=== PATIENT | male | born 1965 | race Caucasian/White ===

== ENCOUNTER → 2021-08-25 | Outpatient (REF) | payer OTHER ==
[2021-08-25 12:06] LABS: HEMATOCRIT 48.9 % (42.0-52.0); HEMOGLOBIN 16.5 g/dl (13.5-17.5); MEAN CORPUSCULAR HEMOGLOBIN 30.4 pg (27.0-33.0); MEAN CORPUSCULAR HGB CONC 33.7 g/dl (32.0-36.5); MEAN CORPUSCULAR VOLUME 90.1 fl (80.0-96.0); PLATELET COUNT, AUTOMATED 314 10^3/uL (150-450); RED BLOOD COUNT 5.43 10^6/uL (4.30-6.10); WHITE BLOOD COUNT 8.2 10^3/uL (4.0-10.0)
[2021-08-25 12:15] LABS: ALT/SGPT 26 U/L (12-78); BILIRUBIN,TOTAL 0.4 MG/DL (0.2-1.0); BLOOD UREA NITROGEN 13 MG/DL (7-18); CALCIUM LEVEL 9.3 MG/DL (8.5-10.1); CARBON DIOXIDE LEVEL 33 MEQ/L (21-32); CHLORIDE LEVEL 104 MEQ/L (98-107); CHOLESTEROL LEVEL 199 MG/DL (<200); CREATININE FOR GFR 1.05 MG/DL (0.70-1.30); GLOMERULAR FILTRATION RATE > 60.0 (>56); GLUCOSE, FASTING 105 MG/DL (70-100); HDL CHOLESTEROL 50 MG/DL (>40); LDL CHOLESTEROL 120 MG/DL (<100); NON-HDL-C 149 MG/DL; POTASSIUM SERUM 3.7 MEQ/L (3.5-5.1); SODIUM LEVEL 140 MEQ/L (136-145); TOTAL PROTEIN 7.3 GM/DL (6.4-8.2); TRIGLYCERIDES LEVEL 143 MG/DL (<150)
[2021-08-25 12:51] LABS: HEMOGLOBIN A1c 5.3 %
== END ==
LOC: M SFHCCLAY 07:53
PROVIDERS: ATTEND Nurse Practitioner Family
DX: I50.9 Heart failure, unspecified (principal); I11.0 Hypertensive heart disease with heart failure; Z13.1 Encounter for screening for diabetes mellitus

== ENCOUNTER → 2021-10-14 | Outpatient (CLI) | payer OTHER | LOC: M PAIN 13:00 | PROVIDERS: ATTEND Nurse Practitioner Family | DX: M54.50 Low back pain, unspecified (principal); G89.29 Other chronic pain; F17.290 Nicotine dependence, other tobacco product, uncomplicated; Z86.59 Personal history of other mental and behavioral disorders; Z88.0 Allergy status to penicillin; Z79.899 Other long term (current) drug therapy ==

== ENCOUNTER → 2022-02-23 | Outpatient (REF) | payer OTHER ==
[2022-02-23 17:54] LABS: MEAN CORPUSCULAR HEMOGLOBIN 29.9 pg (27.0-33.0); MEAN CORPUSCULAR HGB CONC 33.3 g/dl (32.0-36.5); MEAN CORPUSCULAR VOLUME 89.6 fl (80.0-96.0); PLATELET COUNT, AUTOMATED 293 10^3/uL (150-450); RED BLOOD COUNT 5.36 10^6/uL (4.30-6.10); WHITE BLOOD COUNT 9.5 10^3/uL (4.0-10.0)
[2022-02-23 18:59] LABS: ALBUMIN 3.8 GM/DL (3.2-5.2); ALT/SGPT 26 U/L (12-78); BILIRUBIN,TOTAL 0.5 MG/DL (0.2-1.0); BLOOD UREA NITROGEN 10 MG/DL (7-18); CALCIUM LEVEL 8.9 MG/DL (8.5-10.1); CARBON DIOXIDE LEVEL 26 MEQ/L (21-32); CHLORIDE LEVEL 106 MEQ/L (98-107); CHOLESTEROL LEVEL 189 MG/DL (<200); CHOLESTEROL RISK RATIO 3.705 (<5); CREATININE FOR GFR 0.92 MG/DL (0.70-1.30); GLOMERULAR FILTRATION RATE > 60.0 (>56); GLUCOSE, FASTING 83 MG/DL (70-100); HDL CHOLESTEROL 51 MG/DL (>40); LDL CHOLESTEROL 103 MG/DL (<100); NON-HDL-C 138 MG/DL; POTASSIUM SERUM 4.1 MEQ/L (3.5-5.1); SODIUM LEVEL 138 MEQ/L (136-145); TOTAL PROTEIN 7.3 GM/DL (6.4-8.2); TRIGLYCERIDES LEVEL 176 MG/DL (<150)
== END ==
LOC: M SFHCCLAY 11:33
PROVIDERS: ATTEND Nurse Practitioner Family
DX: I10 Essential (primary) hypertension (principal); E78.5 Hyperlipidemia, unspecified; Z12.5 Encounter for screening for malignant neoplasm of prostate

== ENCOUNTER → 2022-03-31 | Outpatient (REF) | payer OTHER | LOC: M SFHCCLAY 03-30 07:11 | PROVIDERS: ATTEND Physician Assistant | DX: R36.1 Hematospermia (principal) ==

== ENCOUNTER → 2022-04-29 | Outpatient (REF) | payer OTHER | LOC: M SMT 13:14 | PROVIDERS: ATTEND Urology | DX: R97.20 Elevated prostate specific antigen [PSA] (principal) ==

== ENCOUNTER 2022-06-08 13:00 | Inpatient (IN) | payer OTHER ==
[~2022-06-08] VITALS: Ht 185.4 cm; Wt 122.9 kg
[2022-06-22] MEDS ORDERED: GABA-282 PO (13:49)
[2022-06-22] MEDS ORDERED: PROA1AER2 INH (13:49)
[2022-06-22] MEDS ORDERED: ALLO100T PO (13:49)
[2022-06-22] MEDS ORDERED: EZET10TA21 PO (13:49)
[2022-06-22] MEDS ORDERED: FURO20TA2 PO (13:49)
[2022-06-22] MEDS ORDERED: AMLO10TA PO (13:49)
[2022-06-22] MEDS ORDERED: VENL75CA47 PO (13:49)
[2022-06-22] MEDS ORDERED: TAMS1CAP17 PO (13:49)
[2022-06-22] MEDS ORDERED: SIMV10TA21 PO (13:49)
[2022-06-22] MEDS ORDERED: META1TAB22 PO (13:49)
[2022-06-22] MEDS ORDERED: DIAZ10TA2 PO (13:49)
[2022-06-30] MEDS ORDERED: LIDOCAINE 2% 100MG/5ML SDV (FOR ANES.) As Ordered ONE (09:26)
[2022-06-30] MEDS ORDERED: propofoL 200 MG/20 ML VIAL As Ordered ONE (09:26)
[2022-06-30] MEDS ORDERED: ONDANSETRON 4MG 2ML VIAL As Ordered ONE (09:26)
[2022-06-30] MEDS ORDERED: SUGAMMADEX SODIUM 500 MG/5 ML VIAL (BRIDION) As Ordered ONE (09:26)
[2022-06-30] MEDS ORDERED: ROCURONIUM BROMIDE 50MG/5ML VIAL As Ordered ONE ×3 (09:26→16:00)
[2022-06-30] MEDS ORDERED: LR 1,000 ML IV SCH ×2 (10:05→18:30)
[2022-06-30] MEDS ORDERED: ceFAZolin SOD 2 GM in IV 1 EA IV ONE (10:45)
[2022-06-30] MEDS ORDERED: ceFAZolin SOD 1 GM in D5W MINI-BAG PLUS 50 ML IV ONE (10:45)
[2022-06-30] MEDS ORDERED: FUROSEMIDE 100MG/10ML VIAL As Ordered ONE (11:02)
[2022-06-30] MEDS ORDERED: MIDAZOLAM INJ 2MG/2ML VIAL As Ordered ONE (12:18)
[2022-06-30] MEDS ORDERED: fentaNYL 250 MCG/5 ML INJECTION As Ordered ONE (12:18)
[2022-06-30] MEDS ORDERED: LIDOCAINE 1% SDV 30ML VIAL As Ordered ONE (13:16)
[2022-06-30] MEDS ORDERED: BUPIVACAINE HCL 0.25% 30ML VIAL As Ordered ONE (13:16)
[2022-06-30] MEDS ORDERED: ONDANSETRON 4MG 2ML VIAL IV PRN ×2 (13:40→18:30)
[2022-06-30] MEDS ORDERED: ACETAMINOPHEN TAB 650MG DOSE (2X325MG) PO PRN (13:40)
[2022-06-30] MEDS ORDERED: NS 1,000 ML IV SCH (13:40)
[2022-06-30] MEDS ORDERED: ALBUTEROL 90 MCG/ACT 8GM HFA INHALER INH PRN (13:40)
[2022-06-30] MEDS ORDERED: HEPARIN SOD (PORCINE) 5000UNITS/ML 1ML VIAL/SYRINGE As Ordered ONE (13:53)
[2022-06-30] MEDS ORDERED: ePHEDrine SULFATE 25 MG/5 ML(5MG/ML) SYRINGE As Ordered ONE (13:56)
[2022-06-30] MEDS ORDERED: ceFAZolin 1GM VIAL As Ordered ONE ×2 (14:08→18:10)
[2022-06-30] MEDS ORDERED: ceFAZolin 2 GM/D5W 50 ML IV BAG As Ordered ONE ×2 (14:08→18:10)
[2022-06-30] MEDS ORDERED: GLYCOPYRROLATE INJ 0.2 MG/ML 2 ML VIAL As Ordered ONE (14:32)
[2022-06-30] MEDS ORDERED: ACETAMINOPHEN 1000MG 100ML IV BAG As Ordered ONE (15:43)
[2022-06-30] MEDS ORDERED: HYDROmorphone HCL 2MG/ML 1ML VIAL As Ordered ONE (15:57)
[2022-06-30] MEDS ORDERED: CALCIUM CHLORIDE 10% 1 GM/10 ML SYR As Ordered ONE (17:39)
[2022-06-30] MEDS ORDERED: LIDOCAINE 2% INJ 100 MG/5 ML SYRINGE As Ordered ONE (17:45)
[2022-06-30] MEDS ORDERED: fentaNYL 100 MCG/2 ML INJECTION As Ordered ONE (18:16)
[2022-06-30] MEDS ORDERED: oxyCODONE 5MG TAB PO PRN (18:30)
[2022-06-30] MEDS ORDERED: fentaNYL 100 MCG/2 ML INJECTION IV PRN (18:30)
[2022-06-30] MEDS ORDERED: HYDROMORPHONE HCL 0.5 MG/ 0.5 ML SYRINGE IV PRN (18:30)
[2022-06-30 19:31] LABS: HEMATOCRIT 44.7 % (42.0-52.0); HEMOGLOBIN 14.9 g/dl (13.5-17.5); MEAN CORPUSCULAR HEMOGLOBIN 30.3 pg (27.0-33.0); MEAN CORPUSCULAR HGB CONC 33.3 g/dl (32.0-36.5); PLATELET COUNT, AUTOMATED 278 10^3/uL (150-450); RED BLOOD COUNT 4.91 10^6/uL (4.30-6.10); WHITE BLOOD COUNT 16.4 10^3/uL (4.0-10.0)
[2022-06-30 19:54] LABS: BLOOD UREA NITROGEN 13 MG/DL (9-23); CALCIUM LEVEL 8.9 MG/DL (8.5-10.1); CARBON DIOXIDE LEVEL 27 MMOL/L (20-31); CHLORIDE LEVEL 105 MMOL/L (98-107); CREATININE FOR GFR 1.08 MG/DL (0.70-1.30); GLOMERULAR FILTRATION RATE > 60.0 (>56); GLUCOSE, FASTING 118 MG/DL (60-100); POTASSIUM SERUM 3.9 MMOL/L (3.5-5.1); SODIUM LEVEL 139 MMOL/L (136-145)
[2022-06-30 20:20] VITALS: BP 129/90
[2022-06-30] MEDS ORDERED: DIAZ5TAB PO (20:57)
[2022-06-30 21:00] VITALS: BP 133/76
[2022-06-30] MEDS ORDERED: HOME MED LIST COMPLETE! XX SCH (21:00)
[2022-06-30] MEDS ORDERED: MULTIVITAMIN -ADULT INJECTION 10 ML, THIAMINE INJection 100 MG, FOLIC ACID 1 MG in NS 1... IV ONE (21:00)
[2022-06-30 21:30] VITALS: BP 140/80
[2022-06-30] MEDS: DOCUSATE SODIUM 100MG CAPSULE PO SCH (21:55)
[2022-06-30] MEDS: GABAPENTIN 300 MG CAP PO SCH (21:55)
[2022-06-30] MEDS: HEPARIN SOD (PORCINE) 5000UNITS/ML 1ML VIAL/SYRINGE SC SCH (21:57)
[2022-06-30] MEDS: ceFAZolin SOD 1 GM in D5W MINI-BAG PLUS 50 ML IV SCH (22:02)
[2022-06-30] MEDS: PERCOCET 5MG/325MG TAB PO PRN (22:03)
[2022-06-30 22:30] VITALS: BP 149/91
[2022-06-30 23:30] VITALS: BP 143/89
[2022-07-01 00:30] VITALS: BP 139/77
[2022-07-01] MEDS: PERCOCET 5MG/325MG TAB PO PRN ×3 (04:34→14:00)
[2022-07-01] MEDS: ceFAZolin SOD 1 GM in D5W MINI-BAG PLUS 50 ML IV SCH (05:26)
[2022-07-01] MEDS: HEPARIN SOD (PORCINE) 5000UNITS/ML 1ML VIAL/SYRINGE SC SCH ×2 (05:26→14:00)
[2022-07-01 05:38] LABS: HEMATOCRIT 42.1 % (42.0-52.0); HEMOGLOBIN 14.1 g/dl (13.5-17.5); MEAN CORPUSCULAR HEMOGLOBIN 30.4 pg (27.0-33.0); MEAN CORPUSCULAR HGB CONC 33.5 g/dl (32.0-36.5); MEAN CORPUSCULAR VOLUME 90.7 fl (80.0-96.0); PLATELET COUNT, AUTOMATED 272 10^3/uL (150-450); RED BLOOD COUNT 4.64 10^6/uL (4.30-6.10); WHITE BLOOD COUNT 10.8 10^3/uL (4.0-10.0)
[2022-07-01 06:00] VITALS: BP 145/88
[2022-07-01 06:00] LABS: BLOOD UREA NITROGEN 12 MG/DL (9-23); CALCIUM LEVEL 8.4 MG/DL (8.5-10.1); CARBON DIOXIDE LEVEL 27 MMOL/L (20-31); CHLORIDE LEVEL 102 MMOL/L (98-107); CREATININE FOR GFR 1.01 MG/DL (0.70-1.30); GLOMERULAR FILTRATION RATE > 60.0 (>56); GLUCOSE, FASTING 94 MG/DL (60-100); POTASSIUM SERUM 4.3 MMOL/L (3.5-5.1); SODIUM LEVEL 137 MMOL/L (136-145)
[2022-07-01] MEDS ORDERED: SIMVASTATIN 10 MG TAB PO SCH (09:00)
[2022-07-01] MEDS ORDERED: FUROSEMIDE 20 MG TAB PO SCH (09:00)
[2022-07-01] MEDS ORDERED: allopurinoL 100 MG TAB PO SCH (09:00)
[2022-07-01] MEDS: GABAPENTIN 300 MG CAP PO SCH (09:20)
[2022-07-01] MEDS: DOCUSATE SODIUM 100MG CAPSULE PO SCH (09:20)
[2022-07-01 09:22] VITALS: BP 145/88
[2022-07-01 10:00] VITALS: BP 132/65
[2022-07-01 14:00] VITALS: BP 131/70
[2022-07-01] MEDS ORDERED: PERCOCET PO (14:28)
[2022-07-01] MEDS ORDERED: COLA100C5 PO (14:28)
[2022-07-01] MEDS ORDERED: BACT800T5 PO (14:28)
[2022-07-02] MEDS ORDERED: BACT800T5 PO (04:09)
== END 2022-07-01 15:13 | disposition home or self-care (01) | DRG 484 ==
LOC: M OR 06-30 09:57 → M MSPAV 06-30 20:12
PROVIDERS: ADMIT Urology; ATTEND Urology
PROC: 07BC4ZZ Excision of Pelvis Lymphatic, Percutaneous Endoscopic Approach (ICD-10-PCS; 2022-06-30)
PROC: 8E0W4CZ Robotic Assisted Procedure of Trunk Region, Percutaneous Endoscopic Approach (ICD-10-PCS; 2022-06-30)
PROC: 0VT04ZZ Resection of Prostate, Percutaneous Endoscopic Approach (ICD-10-PCS; principal; 2022-06-30 11:55)
DX: C61 Malignant neoplasm of prostate (principal); Z88.0 Allergy status to penicillin; Z79.899 Other long term (current) drug therapy

== ENCOUNTER → 2022-06-24 | Outpatient (REF) | payer OTHER ==
[~2022-06-24] MED LIST: ALLO100T PO; AMLO10TA PO; DIAZ10TA2 PO; DIAZ5TAB PO; EZET10TA21 PO; FURO20TA2 PO; GABA-282 PO; META1TAB22 PO; PROA1AER2 INH; SIMV10TA21 PO; TAMS1CAP17 PO; VENL75CA47 PO
[2022-06-24 17:30] LABS: HEMATOCRIT 50.1 % (42.0-52.0); HEMOGLOBIN 16.6 g/dl (13.5-17.5); MEAN CORPUSCULAR HGB CONC 33.1 g/dl (32.0-36.5); MEAN CORPUSCULAR VOLUME 90.6 fl (80.0-96.0); PLATELET COUNT, AUTOMATED 342 10^3/uL (150-450); RED BLOOD COUNT 5.53 10^6/uL (4.30-6.10); WHITE BLOOD COUNT 8.1 10^3/uL (4.0-10.0)
[2022-06-24 17:31] LABS: INR 0.99; PARTIAL THROMBOPLASTIN TIME 29.2 SECONDS (24.8-34.2); PROTHROMBIN TIME 13.3 SECONDS (12.5-14.5)
[2022-06-24 17:41] LABS: ALBUMIN 3.9 G/DL (3.2-5.2); ALKALINE PHOSPHATASE 84 U/L (46-116); ALT/SGPT 28 U/L (7.0-40); AST/SGOT 22 U/L (<34); BILIRUBIN,TOTAL 0.6 MG/DL (0.3-1.2); BLOOD UREA NITROGEN 14 MG/DL (9-23); CALCIUM LEVEL 9.4 MG/DL (8.5-10.1); CARBON DIOXIDE LEVEL 28 MMOL/L (20-31); CHLORIDE LEVEL 105 MMOL/L (98-107); CHOLESTEROL LEVEL 220 MG/DL (<200); CHOLESTEROL RISK RATIO 4.25 (<5); CREATININE FOR GFR 1.16 MG/DL (0.70-1.30); GLOMERULAR FILTRATION RATE > 60.0 (>56); GLUCOSE, FASTING 87 MG/DL (60-100); HDL CHOLESTEROL 51.7 MG/DL (>40); LDL CHOLESTEROL 125.5 MG/DL (<100); NON-HDL-C 168 MG/DL; POTASSIUM SERUM 4.1 MMOL/L (3.5-5.1); SODIUM LEVEL 137 MMOL/L (136-145); TOTAL PROTEIN 7.3 G/DL (5.7-8.2); TRIGLYCERIDES LEVEL 214 MG/DL (<150)
[2022-06-24 17:43] LABS: FREE T4 1.31 NG/DL (0.89-1.76)
== END ==
LOC: M SFHCCLAY 14:42
PROVIDERS: ATTEND Nurse Practitioner Family
DX: Z01.818 Encounter for other preprocedural examination (principal); I25.10 Atherosclerotic heart disease of native coronary artery without angina pectoris; M54.50 Low back pain, unspecified; G89.29 Other chronic pain; F32.9 Major depressive disorder, single episode, unspecified; E78.2 Mixed hyperlipidemia

== ENCOUNTER → 2022-06-24 | Outpatient (CLI) | payer OTHER ==
[~2022-06-24] MED LIST changes: -DIAZ5TAB PO
== END ==
LOC: M CLY 14:54
PROVIDERS: ATTEND Nurse Practitioner Family
DX: Z01.818 Encounter for other preprocedural examination (principal)

== ENCOUNTER → 2022-06-26 | Outpatient (CLI) | payer OTHER | LOC: M LABSMTC 12:06 | PROVIDERS: ATTEND Anesthesiology | DX: Z01.812 Encounter for preprocedural laboratory examination (principal); Z11.52 Encounter for screening for COVID-19 ==

== ENCOUNTER 2022-07-01 22:26 | Inpatient (IN) | payer OTHER ==
[~2022-07-01] VITALS: Ht 185.4 cm; Wt 122.7 kg
[~2022-07-01 22:26] MED LIST changes: +BACT800T5 PO; +COLA100C5 PO; +DIAZ5TAB PO; +PERCOCET PO
[2022-07-01 23:51] LABS: BASO % 0.2 % (0.0-1.0); EOS % 0.1 % (0.0-3.0); HEMATOCRIT 44.7 % (42.0-52.0); HEMOGLOBIN 14.9 g/dl (13.5-17.5); LYMPH # 1.2 10^3/uL (1.5-5.0); LYMPH % 6.4 % (24.0-44.0); MEAN CORPUSCULAR HEMOGLOBIN 29.9 pg (27.0-33.0); MEAN CORPUSCULAR HGB CONC 33.3 g/dl (32.0-36.5); MEAN CORPUSCULAR VOLUME 89.8 fl (80.0-96.0); MONO # 1.3 10^3/uL (0.0-0.8); MONO % 6.6 % (2.0-8.0); NEUTROPHILS # 16.8 10^3/uL (1.5-8.5); NEUTROPHILS % 86.2 % (36.0-66.0); PLATELET COUNT, AUTOMATED 287 10^3/uL (150-450); RED BLOOD COUNT 4.98 10^6/uL (4.30-6.10); WHITE BLOOD COUNT 19.4 10^3/uL (4.0-10.0)
[2022-07-01] MEDS ORDERED: ACETAMINOPHEN 1000MG 100ML IV BAG IV ONE (23:55)
[2022-07-01] MEDS ORDERED: LevoFLOXacin IV 750 MG in IV 1 EA IV ONE (23:55)
[2022-07-01] MEDS ORDERED: ONDANSETRON 4MG 2ML VIAL IV ONE (23:55)
[2022-07-01] MEDS ORDERED: IBUPROFEN 800 MG TAB PO ONE (23:55)
[2022-07-02] VITALS (8 sets, daily range): BP systolic 129–159; BP diastolic 72–88
[2022-07-02 00:05] LABS: ALBUMIN 3.5 G/DL (3.2-5.2); BILIRUBIN,TOTAL 0.6 MG/DL (0.3-1.2); CALCIUM LEVEL 8.5 MG/DL (8.5-10.1); CREATININE FOR GFR 1.34 MG/DL (0.70-1.30); GLOMERULAR FILTRATION RATE 58.7 (>56); POTASSIUM SERUM 3.7 MMOL/L (3.5-5.1); TOTAL PROTEIN 6.8 G/DL (5.7-8.2)
[2022-07-02] MEDS ORDERED: ISOVUE-370 76% 100ML VIAL As Ordered ONE (00:21)
[2022-07-02] MEDS: MORPHINE 4 MG/ML 1ML VIAL IV PRN ×2 (01:25→03:43)
[2022-07-02] MEDS ORDERED: BACT800T5 PO (04:09)
[2022-07-02] MEDS ORDERED: HOME MED LIST COMPLETE! XX SCH (04:10)
[2022-07-02] MEDS ORDERED: NS 2,000 ML IV ONE (04:30)
[2022-07-02] MEDS ORDERED: diphenhydrAMINE 25MG CAP PO ONE (05:10)
[2022-07-02] MEDS: NS 1,000 ML IV SCH ×2 (05:40→09:12)
[2022-07-02] MEDS: traMADol 50 MG TAB PO PRN ×2 (06:03→14:51)
[2022-07-02 07:17] LABS: BLOOD UREA NITROGEN 19 MG/DL (9-23); CALCIUM LEVEL 7.8 MG/DL (8.5-10.1); CARBON DIOXIDE LEVEL 26 MMOL/L (20-31); CHLORIDE LEVEL 102 MMOL/L (98-107); GLOMERULAR FILTRATION RATE > 60.0 (>56); GLUCOSE, FASTING 109 MG/DL (60-100); POTASSIUM SERUM 3.6 MMOL/L (3.5-5.1); SODIUM LEVEL 135 MMOL/L (136-145)
[2022-07-02] MEDS: IPRATROPIUM 0.5MG/ALBUTEROL 2.5MG INH SOL UD 3ML (DUONEB) NEB SCH ×3 (08:00→19:25)
[2022-07-02] MEDS: allopurinoL 100 MG TAB PO SCH (08:28)
[2022-07-02] MEDS: diphenhydrAMINE 25MG CAP PO PRN ×3 (08:28→20:48)
[2022-07-02] MEDS: EZETIMIBE 10MG TABLET (ZETIA) PO SCH (08:29)
[2022-07-02] MEDS: GABAPENTIN 300 MG CAP PO SCH ×3 (08:29→20:48)
[2022-07-02] MEDS: DOCUSATE SODIUM 100MG CAPSULE PO SCH ×2 (08:29→20:48)
[2022-07-02] MEDS ORDERED: HEPARIN SOD (PORCINE) 5000UNITS/ML 1ML VIAL/SYRINGE SC SCH (09:00)
[2022-07-02 11:27] LABS: BASO # 0.1 10^3/uL (0.0-0.2); BASO % 0.4 % (0.0-1.0); EOS # 0.1 10^3/uL (0.0-0.5); HEMATOCRIT 43.1 % (42.0-52.0); HEMOGLOBIN 14.4 g/dl (13.5-17.5); LYMPH # 1.5 10^3/uL (1.5-5.0); LYMPH % 11.1 % (24.0-44.0); MEAN CORPUSCULAR HEMOGLOBIN 30.4 pg (27.0-33.0); MEAN CORPUSCULAR HGB CONC 33.4 g/dl (32.0-36.5); MEAN CORPUSCULAR VOLUME 90.9 fl (80.0-96.0); MONO # 0.8 10^3/uL (0.0-0.8); MONO % 5.6 % (2.0-8.0); NEUTROPHILS # 11.1 10^3/uL (1.5-8.5); NEUTROPHILS % 81.3 % (36.0-66.0); PLATELET COUNT, AUTOMATED 280 10^3/uL (150-450); RED BLOOD COUNT 4.74 10^6/uL (4.30-6.10); WHITE BLOOD COUNT 13.6 10^3/uL (4.0-10.0)
[2022-07-02] MEDS: HYDROMORPHONE HCL 0.5 MG/ 0.5 ML SYRINGE IV PRN ×3 (13:35→20:48)
[2022-07-02] MEDS: LORazepam 2 MG TAB PO PRN ×2 (14:56→19:12)
[2022-07-02] MEDS: THIAMINE 100 MG TAB PO SCH ×2 (15:10→20:49)
[2022-07-02] MEDS: MULTIVITAMINS/MINERALS THERAP 1 TAB PO SCH (15:10)
[2022-07-02] MEDS: FOLIC ACID 1MG TAB PO SCH (15:11)
[2022-07-02] MEDS: PERCOCET 5MG/325MG TAB PO PRN (19:11)
[2022-07-02] MEDS ORDERED: ENOXAPARIN 40MG/0.4ML SYRINGE (J1650 PER 10MG) SC SCH (21:00)
[2022-07-03] MEDS: IPRATROPIUM 0.5MG/ALBUTEROL 2.5MG INH SOL UD 3ML (DUONEB) NEB SCH ×2 (02:00→07:27)
[2022-07-03 05:25] VITALS: BP 136/71
[2022-07-03] MEDS ORDERED: LevoFLOXacin 750 MG TABLET PO SCH (06:00)
[2022-07-03 06:31] VITALS: BP 136/71
[2022-07-03 07:21] LABS: BASO % 0.2 % (0.0-1.0); EOS # 0.4 10^3/uL (0.0-0.5); EOS % 4.4 % (0.0-3.0); LYMPH # 1.9 10^3/uL (1.5-5.0); LYMPH % 22.2 % (24.0-44.0); MEAN CORPUSCULAR HEMOGLOBIN 30.1 pg (27.0-33.0); MEAN CORPUSCULAR HGB CONC 33.1 g/dl (32.0-36.5); MEAN CORPUSCULAR VOLUME 91.1 fl (80.0-96.0); MONO # 0.7 10^3/uL (0.0-0.8); MONO % 8.6 % (2.0-8.0); NEUTROPHILS # 5.4 10^3/uL (1.5-8.5); NEUTROPHILS % 63.9 % (36.0-66.0); PLATELET COUNT, AUTOMATED 222 10^3/uL (150-450); RED BLOOD COUNT 3.95 10^6/uL (4.30-6.10); WHITE BLOOD COUNT 8.5 10^3/uL (4.0-10.0)
[2022-07-03 07:25] LABS: HEMOGLOBIN 11.9 g/dl (13.5-17.5)
[2022-07-03 07:31] LABS: INR 1.1; PROTHROMBIN TIME 14.4 SECONDS (12.5-14.5)
[2022-07-03 07:58] LABS: BLOOD UREA NITROGEN 11 MG/DL (9-23); CALCIUM LEVEL 7.6 MG/DL (8.5-10.1); CARBON DIOXIDE LEVEL 28 MMOL/L (20-31); CHLORIDE LEVEL 105 MMOL/L (98-107); CREATININE FOR GFR 0.93 MG/DL (0.70-1.30); GLOMERULAR FILTRATION RATE > 60.0 (>56); GLUCOSE, FASTING 88 MG/DL (60-100); POTASSIUM SERUM 3.8 MMOL/L (3.5-5.1); SODIUM LEVEL 138 MMOL/L (136-145)
[2022-07-03] MEDS: DOCUSATE SODIUM 100MG CAPSULE PO SCH (08:03)
[2022-07-03] MEDS: MULTIVITAMINS/MINERALS THERAP 1 TAB PO SCH (08:03)
[2022-07-03] MEDS: EZETIMIBE 10MG TABLET (ZETIA) PO SCH (08:03)
[2022-07-03] MEDS: FOLIC ACID 1MG TAB PO SCH (08:03)
[2022-07-03] MEDS: GABAPENTIN 300 MG CAP PO SCH (08:03)
[2022-07-03] MEDS: allopurinoL 100 MG TAB PO SCH (08:04)
[2022-07-03] MEDS: THIAMINE 100 MG TAB PO SCH (08:04)
[2022-07-03] MEDS: PERCOCET 5MG/325MG TAB PO PRN ×2 (08:04→12:06)
[2022-07-03 09:00] VITALS: BP 178/95
[2022-07-03] MEDS ORDERED: MIRALAX *UNIT DOSE* 17GM PACKET PO SCH (09:00)
[2022-07-03] MEDS ORDERED: LIDOCAINE 5% (LIDODERM) PATCH TD SCH (09:00)
[2022-07-03] MEDS ORDERED: METAMUCIL (PSYLLIUM) PACKET PO SCH (09:00)
[2022-07-03] MEDS: HYDROMORPHONE HCL 0.5 MG/ 0.5 ML SYRINGE IV PRN (09:42)
[2022-07-03] MEDS ORDERED: CEFEPIME HCL 2 GM in D5W MINI-BAG PLUS 50 ML IV SCH (10:00)
[2022-07-03] MEDS ORDERED: KETOROLAC 30 MG/ML 1ML VIAL IV PRN ×2 (10:15)
[2022-07-03] MEDS ORDERED: SENNA 8.6 MG TAB (SENOKOT) PO PRN (10:20)
[2022-07-03] MEDS ORDERED: IPRATROPIUM 0.5MG/ALBUTEROL 2.5MG INH SOL UD 3ML (DUONEB) NEB PRN (10:25)
[2022-07-03] MEDS ORDERED: MIRA1POW3 PO (10:36)
[2022-07-03] MEDS ORDERED: VITMTA PO (10:36)
[2022-07-03] MEDS ORDERED: GABA-283 PO (10:36)
[2022-07-03] MEDS ORDERED: PERCOCET PO (10:36)
[2022-07-03] MEDS ORDERED: THIA100TA PO (10:36)
[2022-07-03] MEDS ORDERED: IBUP-1022 PO (10:36)
[2022-07-03] MEDS ORDERED: META1POW PO (10:36)
[2022-07-03] MEDS ORDERED: FOLI1TAB11 PO (10:36)
[2022-07-03] MEDS ORDERED: ACET-683 PO ×2 (10:36→10:38)
[2022-07-03] MEDS ORDERED: LIDO5TD TD (10:36)
[2022-07-03] MEDS ORDERED: CEFD300C41 PO (10:40)
[2022-07-03 11:38] VITALS: BP 157/91
[2022-07-03] MEDS ORDERED: ACETAMINOPHEN 500 MG TAB PO SCH (12:00)
[2022-07-03] MEDS ORDERED: GABAPENTIN 400MG CAP PO SCH (16:00)
[2022-07-03] MEDS ORDERED: RIVAROXABAN 10MG TAB (XARELTO) PO SCH (18:00)
== END 2022-07-03 12:50 | disposition home or self-care (01) | DRG 720 ==
LOC: M ED 22:26 → M ED INP 07-02 05:57 → ENRESERV 07-02 12:36 → M MS5PR 07-02 13:20
PROVIDERS: ADMIT Internal Medicine; ATTEND Student in an Organized Health Care Education/Training Program
DX: A41.9 Sepsis, unspecified organism (principal); N17.9 Acute kidney failure, unspecified; E87.20 Acidosis, unspecified; C61 Malignant neoplasm of prostate; N39.0 Urinary tract infection, site not specified; M10.9 Gout, unspecified; F10.10 Alcohol abuse, uncomplicated; J45.909 Unspecified asthma, uncomplicated; E78.5 Hyperlipidemia, unspecified; M54.50 Low back pain, unspecified; T36.8X5A Adverse effect of other systemic antibiotics, initial encounter; L50.0 Allergic urticaria; L29.8 Other pruritus; Z79.899 Other long term (current) drug therapy; Z88.0 Allergy status to penicillin; Z88.2 Allergy status to sulfonamides; Z88.8 Allergy status to other drugs, medicaments and biological substances; Z87.442 Personal history of urinary calculi; R65.20 Severe sepsis without septic shock

== ENCOUNTER → 2022-07-29 | Outpatient (REF) | payer OTHER ==
[~2022-07-29] MED LIST changes: +ACET-683 PO; +CEFD300C41 PO; +FOLI1TAB11 PO; +GABA-283 PO; +IBUP-1022 PO; +LIDO5TD TD; +META1POW PO; +MIRA1POW3 PO; +THIA100TA PO; +VITMTA PO
== END ==
LOC: M SFHCCLAY 08:52
PROVIDERS: ATTEND Physician Assistant
DX: Z48.816 Encounter for surgical aftercare following surgery on the genitourinary system (principal)

== ENCOUNTER → 2022-09-09 | Outpatient (CLI) | payer OTHER | LOC: M CLY 14:37 | PROVIDERS: ATTEND Nurse Practitioner Family | DX: M25.552 Pain in left hip (principal) ==

== ENCOUNTER → 2022-10-25 | Outpatient (REF) | payer OTHER ==
[2022-10-25 17:31] LABS: HEMATOCRIT 47.7 % (42.0-52.0); HEMOGLOBIN 16.1 g/dl (13.5-17.5); MEAN CORPUSCULAR HEMOGLOBIN 29.9 pg (27.0-33.0); MEAN CORPUSCULAR HGB CONC 33.8 g/dl (32.0-36.5); MEAN CORPUSCULAR VOLUME 88.7 fl (80.0-96.0); PLATELET COUNT, AUTOMATED 283 10^3/uL (150-450); RED BLOOD COUNT 5.38 10^6/uL (4.30-6.10); WHITE BLOOD COUNT 6.6 10^3/uL (4.0-10.0)
[2022-10-25 17:55] LABS: PROSTATIC SPECIFIC AG MONITOR 0.04 NG/ML (< 4.00)
[2022-10-25 18:01] LABS: ALBUMIN 3.8 G/DL (3.2-5.2); ALKALINE PHOSPHATASE 78 U/L (46-116); ALT/SGPT 23 U/L (7.0-40); AST/SGOT 24 U/L (<34); BILIRUBIN,TOTAL 0.6 MG/DL (0.3-1.2); BLOOD UREA NITROGEN 10 MG/DL (9-23); CALCIUM LEVEL 9.1 MG/DL (8.5-10.1); CARBON DIOXIDE LEVEL 28 MMOL/L (20-31); CHLORIDE LEVEL 104 MMOL/L (98-107); CHOLESTEROL LEVEL 158 MG/DL (<200); CREATININE FOR GFR 0.97 MG/DL (0.70-1.30); GLOMERULAR FILTRATION RATE > 60.0 (>56); GLUCOSE, FASTING 79 MG/DL (60-100); HDL CHOLESTEROL 49.3 MG/DL (>40); LDL CHOLESTEROL 76.7 MG/DL (<100); NON-HDL-C 108.7 MG/DL; POTASSIUM SERUM 4.2 MMOL/L (3.5-5.1); SODIUM LEVEL 140 MMOL/L (136-145); TRIGLYCERIDES LEVEL 160 MG/DL (<150)
== END ==
LOC: M SFHCCLAY 09:39
PROVIDERS: ATTEND Physician Assistant
DX: E78.5 Hyperlipidemia, unspecified (principal); C61 Malignant neoplasm of prostate; I11.0 Hypertensive heart disease with heart failure

== ENCOUNTER → 2023-01-24 | Outpatient (REF) | payer OTHER ==
[~2023-01-24] MED LIST changes: -GABA-283 PO; +GABA-284 PO
== END ==
LOC: M SFHCCLAY 10:37
PROVIDERS: ATTEND Urology
DX: C61 Malignant neoplasm of prostate (principal)

== ENCOUNTER → 2023-05-01 | Outpatient (REF) | payer OTHER ==
[~2023-05-01] MED LIST changes: -CEFD300C41 PO; +CEFD300C42 PO
== END ==
LOC: M SFHCCLAY 09:34
PROVIDERS: ATTEND Urology
DX: C61 Malignant neoplasm of prostate (principal)

== ENCOUNTER → 2023-08-01 | Outpatient (REF) | payer OTHER ==
[~2023-08-01] MED LIST changes: +CEFD1CAP9 PO; -CEFD300C42 PO; -MIRA1POW3 PO; +MIRA33506 PO
== END ==
LOC: M SFHCCLAY 09:10
PROVIDERS: ATTEND Urology
DX: C61 Malignant neoplasm of prostate (principal)

== ENCOUNTER → 2024-04-26 | Outpatient (REF) | payer OTHER ==
[~2024-04-26] MED LIST changes: +GABA-1172 PO; -GABA-282 PO; +META-10 PO; -META1TAB22 PO
== END ==
LOC: M SFHCCLAY 08:01
PROVIDERS: ATTEND Urology
DX: C61 Malignant neoplasm of prostate (principal)

== ENCOUNTER → 2024-05-01 | Outpatient (REF) | payer OTHER ==
[2024-05-01 17:28] LABS: HEMOGLOBIN A1c 5.2 % (4.0-6.0)
[2024-05-01 17:30] LABS: PROSTATIC SPECIFIC AG MONITOR 0.04 NG/ML (< 4.00)
[2024-05-01 17:34] LABS: ALKALINE PHOSPHATASE 79 U/L (40-129); ALT/SGPT 30 U/L (7.0-40); AST/SGOT 18 U/L (<34); BILIRUBIN,TOTAL 0.4 MG/DL (0.3-1.2); BLOOD UREA NITROGEN 14 MG/DL (9-23); CALCIUM LEVEL 9.3 MG/DL (8.5-10.1); CARBON DIOXIDE LEVEL 30 MMOL/L (20-31); CHLORIDE LEVEL 105 MMOL/L (98-107); CHOLESTEROL LEVEL 187 MG/DL (<200); CHOLESTEROL RISK RATIO 3.25 (<5); CREATININE FOR GFR 0.95 MG/DL (0.70-1.30); FREE T4 1.56 NG/DL (0.89-1.76); GLOMERULAR FILTRATION RATE > 60.0 (>56); GLUCOSE, FASTING 97 MG/DL (60-100); HDL CHOLESTEROL 57.5 MG/DL (>40); LDL CHOLESTEROL 103.3 MG/DL (<100); NON-HDL-C 129.5 MG/DL; POTASSIUM SERUM 4.3 MMOL/L (3.5-5.1); SODIUM LEVEL 141 MMOL/L (136-145); TOTAL PROTEIN 7.5 G/DL (5.7-8.2); TRIGLYCERIDES LEVEL 131 MG/DL (<150)
[2024-05-01 17:35] LABS: THYROID STIMULATING HORMONE 0.892 uIU/ML (0.55-4.78)
== END ==
LOC: M SFHCCLAY 08:57
PROVIDERS: ATTEND Nurse Practitioner Family
DX: I50.9 Heart failure, unspecified (principal); I10 Essential (primary) hypertension; E78.5 Hyperlipidemia, unspecified; N52.9 Male erectile dysfunction, unspecified; C61 Malignant neoplasm of prostate; I25.10 Atherosclerotic heart disease of native coronary artery without angina pectoris; G89.29 Other chronic pain; M79.2 Neuralgia and neuritis, unspecified; F32.9 Major depressive disorder, single episode, unspecified; J45.20 Mild intermittent asthma, uncomplicated; L98.9 Disorder of the skin and subcutaneous tissue, unspecified

== ENCOUNTER → 2024-07-19 | Outpatient (CLI) | payer OTHER | LOC: M CLY 08:19 | PROVIDERS: ATTEND Urology | DX: Z01.818 Encounter for other preprocedural examination (principal); N39.3 Stress incontinence (female) (male) ==

== ENCOUNTER → 2024-07-19 | Outpatient (REF) | payer OTHER ==
[2024-07-19 11:43] LABS: HEMATOCRIT 44.4 % (42.0-52.0); MEAN CORPUSCULAR HEMOGLOBIN 30.4 pg (27.0-33.0); MEAN CORPUSCULAR HGB CONC 33.8 g/dl (32.0-36.5); MEAN CORPUSCULAR VOLUME 90.1 fl (80.0-96.0); PLATELET COUNT, AUTOMATED 307 10^3/uL (150-450); RED BLOOD COUNT 4.93 10^6/uL (4.30-6.10); WHITE BLOOD COUNT 6.8 10^3/uL (4.0-10.0)
== END ==
LOC: M SFHCCLAY 08:17
PROVIDERS: ATTEND Urology
DX: Z01.818 Encounter for other preprocedural examination (principal); C61 Malignant neoplasm of prostate; N39.3 Stress incontinence (female) (male); N39.0 Urinary tract infection, site not specified

== ENCOUNTER → 2024-08-20 | Outpatient (REF) | payer OTHER | LOC: M SFHCCLAY 09:57 | PROVIDERS: ATTEND Nurse Practitioner Family | DX: R53.83 Other fatigue (principal) ==

== ENCOUNTER → 2024-08-21 | Outpatient (REF) | payer OTHER | LOC: M SFHCCLAY 09:55 | PROVIDERS: ATTEND Nurse Practitioner Family | DX: C61 Malignant neoplasm of prostate (principal) ==

== ENCOUNTER → 2024-10-30 | Outpatient (REF) | payer OTHER ==
[~2024-10-30] MED LIST changes: +AMLO-751 PO; -AMLO10TA PO
[2024-10-30 13:14] LABS: HEMOGLOBIN A1c 5.4 % (4.0-6.0)
[2024-10-30 13:19] LABS: PROSTATIC SPECIFIC AG MONITOR 0.06 NG/ML (< 4.00)
[2024-10-30 13:29] LABS: ALBUMIN 4.2 G/DL (3.2-5.2); ALKALINE PHOSPHATASE 90 U/L (40-129); ALT/SGPT 64 U/L (7.0-40); AST/SGOT 36 U/L (<34); BILIRUBIN,TOTAL 0.4 MG/DL (0.3-1.2); BLOOD UREA NITROGEN 11 MG/DL (9-23); CALCIUM LEVEL 9.4 MG/DL (8.5-10.1); CARBON DIOXIDE LEVEL 27 MMOL/L (20-31); CHLORIDE LEVEL 105 MMOL/L (98-107); CHOLESTEROL LEVEL 209 MG/DL (<200); CREATININE FOR GFR 0.95 MG/DL (0.70-1.30); GLOMERULAR FILTRATION RATE > 90.0 (>56); GLUCOSE, FASTING 105 MG/DL (60-100); HDL CHOLESTEROL 48.6 MG/DL (>40); LDL CHOLESTEROL 127.2 MG/DL (<100); NON-HDL-C 160.4 MG/DL; POTASSIUM SERUM 4.3 MMOL/L (3.5-5.1); SODIUM LEVEL 142 MMOL/L (136-145); TOTAL PROTEIN 7.7 G/DL (5.7-8.2); TRIGLYCERIDES LEVEL 166 MG/DL (<150)
== END ==
LOC: M SFHCCLAY 08:28
PROVIDERS: ATTEND Nurse Practitioner Family
DX: Z00.00 Encounter for general adult medical examination without abnormal findings (principal); F32.9 Major depressive disorder, single episode, unspecified; I50.9 Heart failure, unspecified; I10 Essential (primary) hypertension; E78.5 Hyperlipidemia, unspecified; N52.9 Male erectile dysfunction, unspecified; C61 Malignant neoplasm of prostate; I25.10 Atherosclerotic heart disease of native coronary artery without angina pectoris; G89.29 Other chronic pain; M79.2 Neuralgia and neuritis, unspecified; J45.20 Mild intermittent asthma, uncomplicated; M51.379 Other intervertebral disc degeneration, lumbosacral region without mention of lumbar back pain or lower extremity pain

== ENCOUNTER → 2025-01-06 | Outpatient (REF) | payer OTHER ==
[2025-01-06 18:15] LABS: PLATELET COUNT, AUTOMATED 325 10^3/uL (150-450)
== END ==
LOC: M LABDRAWC 17:25
PROVIDERS: ATTEND Student in an Organized Health Care Education/Training Program
DX: Z01.818 Encounter for other preprocedural examination (principal)

== ENCOUNTER → 2025-01-06 | Outpatient (REF) | payer OTHER ==
[2025-01-06 18:16] LABS: CREATININE FOR GFR 1.02 MG/DL (0.70-1.30); GLOMERULAR FILTRATION RATE 85.2 (>56)
[2025-01-06 18:17] LABS: RHEUMATOID FACTOR QUANT < 3.5 IU/ML (<14)
[2025-01-06 18:19] LABS: VITAMIN B12 LEVEL 428 PG/ML (211-911)
[2025-01-08 18:51] LABS: CARDIOLIPIN IGA ANTIBODY < 2.0 APL-U/mL (<20.0); CARDIOLIPIN IGG ANTIBODY < 2.0 GPL-U/mL (<20.0); CARDIOLIPIN IGM ANTIBODY 2.1 MPL-U/mL (<20.0)
[2025-01-09 15:57] LABS: SSA SJOGRENS A <1.0 NEG AI (<1.0 NEG); SSB SJOGRENS B <1.0 NEG AI (<1.0 NEG)
[2025-01-11 08:15] LABS: DRVV SCREEN 39.3 SECONDS
[2025-01-11 08:31] LABS: PTT LUPUS TYPE ANTICOAG SCREEN 1.03 (0-1.20)
[2025-01-11 10:42] LABS: ANTI DS-DNA AB Negative (Negative)
[2025-01-11 15:47] LABS: VITAMIN E(ALPHA TOCOPHEROL) 9.3 mg/L (5.7-19.9); VITAMIN E(GAMMA TOCOPHEROL) < 1.0 mg/L (<=4.3)
[2025-01-12 17:45] LABS: VITAMIN B1 LEVEL WHOLE BLOOD 157 nmol/L (78-185)
[2025-01-13 07:27] LABS: VITAMIN B6,PYRIDOXAL PHOSPHATE 16.0 ng/mL (2.1-21.7)
[2025-01-14 20:51] LABS: MOG FACS NEGATIVE (NEGATIVE)
== END ==
LOC: M LABDRAWC 17:28
PROVIDERS: ATTEND Psychiatry & Neurology Neurology
DX: G35 Multiple sclerosis (principal)

== ENCOUNTER → 2025-01-10 | Outpatient (REF) | payer OTHER ==
[2025-01-10 13:15] LABS: INR 1.1
== END ==
LOC: M LAB REF 12:45
PROVIDERS: ATTEND Physician Assistant Surgical
DX: Z01.818 Encounter for other preprocedural examination (principal)

== ENCOUNTER → 2025-05-14 | Outpatient (REF) | payer OTHER ==
[~2025-05-14] MED LIST changes: -EZET10TA21 PO; +EZET10TA57 PO; -IBUP-1022 PO; +IBUP600T42 PO
[2025-05-14 18:25] LABS: BASO # 0.1 10^3/uL (0.0-0.2); BASO % 1.2 % (0.0-1.0); EOS # 0.3 10^3/uL (0.0-0.5); EOS % 3.8 % (0.0-3.0); LYMPH # 1.9 10^3/uL (1.5-5.0); LYMPH % 22.8 % (24.0-44.0); MONO # 0.6 10^3/uL (0.0-0.8); MONO % 6.7 % (2.0-8.0); NEUTROPHILS # 5.4 10^3/uL (1.5-8.5); NEUTROPHILS % 65.3 % (36.0-66.0); PLATELET COUNT, AUTOMATED 364 10^3/uL (150-450)
[2025-05-14 18:52] LABS: ALT/SGPT 39 U/L (7.0-40); AST/SGOT 22 U/L (<34); CALCIUM LEVEL 9.1 MG/DL (8.5-10.1); CARBON DIOXIDE LEVEL 32 MMOL/L (20-31); CHLORIDE LEVEL 102 MMOL/L (98-107); CHOLESTEROL LEVEL 143 MG/DL (<200); CHOLESTEROL RISK RATIO 3.47 (<5); CREATININE FOR GFR 0.87 MG/DL (0.70-1.30); GLOMERULAR FILTRATION RATE > 90.0 (>56); LDL CHOLESTEROL 82.0 MG/DL (<100); NON-HDL-C 101.8 MG/DL; POTASSIUM SERUM 4.2 MMOL/L (3.5-5.1); SODIUM LEVEL 144 MMOL/L (136-145); TRIGLYCERIDES LEVEL 99 MG/DL (<150)
[2025-05-14 18:53] LABS: FREE T4 1.32 NG/DL (0.89-1.76)
[2025-05-14 18:57] LABS: ESTIMATED AVERAGE GLUCOSE 103.0 MG/DL (60-110)
== END ==
LOC: M SFHCCLAY 13:24
PROVIDERS: ATTEND Nurse Practitioner Family
DX: F32.9 Major depressive disorder, single episode, unspecified (principal); I11.0 Hypertensive heart disease with heart failure; I50.9 Heart failure, unspecified; E78.5 Hyperlipidemia, unspecified; N52.9 Male erectile dysfunction, unspecified; C61 Malignant neoplasm of prostate; I25.10 Atherosclerotic heart disease of native coronary artery without angina pectoris; G89.29 Other chronic pain; M79.2 Neuralgia and neuritis, unspecified; J45.20 Mild intermittent asthma, uncomplicated; M51.379 Other intervertebral disc degeneration, lumbosacral region without mention of lumbar back pain or lower extremity pain